=== PATIENT | male | born 1950 | race Two or more races ===

== ENCOUNTER 2016-10-26 13:29 | Emergency (ER) | payer MEDICARE, OTHER ==
[~2016-10-26] VITALS: Ht 165.1 cm; Wt 68.5 kg
[~2016-10-26 13:29] MED LIST: ASPI81TA2 PO; BACL10TA PO; CARV6.252 PO; GLIM4TAB2 PO; INSU100V11 SQ; INSU100V7 SQ; OLME20TA15 PO; ROSU40TA PO; SITA1TAB6 PO
[2016-10-26] MEDS ORDERED: TDAP [DIPH/PERTUSSIS/TET] 0.5 ML VIAL IM ONE ×2 (14:01→14:30)
--- NOTE | 2016-10-26 14:02 | NUR ---
4[facility] LAC TO R EYEBROW, DENIES LOC, NECK, OR BACK PAIN
--- NOTE | 2016-10-26 14:22 | NUR ---
PT TAKEN TO XRAY VIA WC
[2016-10-26] MEDS ORDERED: LIDOCAINE 1%-EPI 1:100,000 20 ML VIAL TP ONE (15:00)
--- NOTE | 2016-10-26 15:23 | NUR ---
Patient discharged to home in stable condition. Written and verbal after care instructions given. Patient verbalizes understanding of instruction.
[2016-10-26 15:24] VITALS: BP 143/82
== END 2016-10-26 15:25 | disposition home or self-care (01) ==
LOC: ER 13:31
DX: S01.111A Laceration without foreign body of right eyelid and periocular area, initial encounter (principal); E11.9 Type 2 diabetes mellitus without complications; I10 Essential (primary) hypertension; E78.00 Pure hypercholesterolemia, unspecified; Z79.4 Long term (current) use of insulin; Z79.82 Long term (current) use of aspirin; Z95.5 Presence of coronary angioplasty implant and graft; W01.198A Fall on same level from slipping, tripping and stumbling with subsequent striking against other object, initial encounter; Y93.89 Activity, other specified; Y92.89 Other specified places as the place of occurrence of the external cause; Y99.9 Unspecified external cause status
CPT/HCPCS: 12014; 70450; 70486; 82962; 90471; 90715; 93005; 99284; A4606; A6402 ×2; Z7610

== ENCOUNTER 2016-11-05 14:33 | Emergency (ER) | payer MEDICARE, OTHER ==
[~2016-11-05] VITALS: Ht 167.6 cm; Wt 74.8 kg
[2016-11-05 14:38] VITALS: BP 137/72
== END 2016-11-05 14:59 | disposition home or self-care (01) ==
LOC: ER 14:35
DX: S01.111D Laceration without foreign body of right eyelid and periocular area, subsequent encounter (principal); E11.9 Type 2 diabetes mellitus without complications; I10 Essential (primary) hypertension; I25.2 Old myocardial infarction; E78.00 Pure hypercholesterolemia, unspecified; F17.200 Nicotine dependence, unspecified, uncomplicated
CPT/HCPCS: 99281; 99406; A4606; Z7502; Z7610

== ENCOUNTER 2023-08-26 22:43 | Emergency (ER) | payer MEDICARE, OTHER ==
[~2023-08-26] VITALS: Ht 167.6 cm; Wt 74.8 kg
[~2023-08-26 22:43] MED LIST changes: +ASPI-1169 PO; -ASPI81TA2 PO; -GLIM4TAB2 PO; +GLIM4TAB37 PO; +OLME20TA13 PO; -OLME20TA15 PO
[2023-08-27 00:14] VITALS: BP 137/66; TEMP 98.1; O2SAT 98
== END 2023-08-27 01:14 | disposition home or self-care (01) ==
LOC: ER 22:48
DX: M79.671 Pain in right foot (principal); Z53.21 Procedure and treatment not carried out due to patient leaving prior to being seen by health care provider